=== PATIENT | female | born 1975 | race Two or more races ===

== ENCOUNTER 2024-03-05 19:42 | Emergency (ER) | payer MEDICAID, OTHER ==
[~2024-03-05] VITALS: Ht 152.4 cm; Wt 114.2 kg
[2024-03-05 19:47] VITALS: BP 152/99; RESP 20; O2SAT 98
[2024-03-05 19:49] VITALS: PULSE 92
[2024-03-05] MEDS ORDERED: SODIUM CHLORIDE 0.9% 1,000 ML IV ONE (20:00)
[2024-03-05] MEDS ORDERED: levETIRAcetam 1000 mg/100ml 100 ML IV ONE (20:00)
[2024-03-05] MEDS: HYDROcodone-ACET 5/325MG TAB PO ONE (20:52)
[2024-03-05 21:23] LABS: Urine Bacteria FEW /hpf (None Seen); Urine Blood Negative /uL (Negative); Urine Budding Yeast OCCASIONAL /hpf (None Seen); Urine Clarity Turbid (Clear); Urine Color Colorless (Yellow); Urine Protein, UAD Negative (Negative); Urine Urobilinogen Normal (Negative); Urine WBC 3 /hpf (0 - 5); Urine pH 6.5 (5.0-9.0)
[2024-03-05] MEDS ORDERED: NAP500T PO (21:25)
[2024-03-05] MEDS ORDERED: KEP500T PO (21:25)
== END 2024-03-06 00:54 | disposition home or self-care (01) ==
LOC: ER 19:42
DX: G40.909 Epilepsy, unspecified, not intractable, without status epilepticus (principal); I10 Essential (primary) hypertension; R51.9 Headache, unspecified
CPT/HCPCS: 81001; 93005